=== PATIENT | female | born 1975 | race Caucasian/White ===

== ENCOUNTER 2017-05-29 15:49 | Emergency (ER) | payer OTHER ==
[~2017-05-29] VITALS: Ht 167.6 cm; Wt 52.2 kg
--- NOTE | ~2017-05-29 | CR63 ---
[facility] A Service of [facility] & [facility] RADIOLOGY TEXT RESULTS PATIENT: CORTEZ GREGORIO LOCATION: CFTX : 71 UNIT #: [id number] AGE: [address]: Charline Ferrari SEX: F ORDER DR: [id number] [facility] [address] [place], [place] [address] [id number] MR#: [id number] Acc #: [id number] NAME: CORTEZ GREGORIO : 1975 SEX: F STUDY DATE/TIME: 05/29/2017 16:49 UNIT: [facility] ROOM: STUDY DESCRIPTION: CR Chest 2 View Attending Physician: Charline Ferrari P.A.-C. Ordering Physician: Charline Ferrari P.A.-C. Primary Care Physician: Primary Care Physician No MEDICAL IMAGING REPORT This report is preliminary unless electronic signature is present EXAM Two-view chest 05/29/2017 INDICATION Cough, congestion, shortness of air, chest pain for a month, worsening symptoms lately. Tobacco abuse over 20 years. TECHNIQUE Two-view chest. No comparisons. FINDINGS There is mild upper thoracic levoscoliosis. Cardiac silhouette unremarkable. Vascularity normal. Lungs clear without evidence of pneumothorax. IMPRESSION Negative chest. We have no comparisons. Dictated by... José Zelaya M.D. THIS IS AN ELECTRONICALLY VERIFIED REPORT José Zelaya M.D. at 05/30/2017 11:25 PM LINETTE/shyanne TD: 05/30/2017 08:17 JOB #: [id number] MEDICAL IMAGING REPORT Page 1 of 1 COPY
--- NOTE | ~2017-05-29 | CT71 ---
[facility] A Service of [facility] RADIOLOGY TEXT RESULTS PATIENT: CORTEZ GREGORIO LOCATION: CFTX : 71 UNIT #: [id number] AGE: [address]: Charline Ferrari SEX: F ORDER DR: [id number] [facility] [address] [place], [place] [address] [id number] E MR#: [id number] Acc #: [id number] NAME: CORTEZ GREGORIO : 1975 SEX: F STUDY DATE/TIME: 05/29/2017 17:14 UNIT: [facility] ROOM: STUDY DESCRIPTION: CT Head Wo Contrast Attending Physician: Charline Ferrari P.A.-C. Ordering Physician: Charline Ferrari P.A.-C. Primary Care Physician: Primary Care Physician No MEDICAL IMAGING REPORT This report is preliminary unless electronic signature is present EXAM CT head without IV contrast COMPARISON None. INDICATION 42-year-old female with headache and dizziness as well as lightheaded sensation for [address] examination was performed with one or more of the following radiation dose reduction techniques: automatic exposure control, adjustment of mA and/or kV according to patient size, and iterative reconstruction. Cerumen in the left external ear canal. Mastoid air cells, middle ears and visualized paranasal sinuses are well-aerated. No acute fractures or suspicious osseous lesions. Normal cerebral volume. No mass effect or abnormal extraaxial fluid collection. No acute intracranial hemorrhage. No evidence of acute ischemia. IMPRESSION No acute intracranial abnormality. Exam is within normal limits. Dictated by... Rupesh Bell M.D. THIS IS AN ELECTRONICALLY VERIFIED REPORT Rupesh Bell M.D. at 06/02/2017 10:57 PM ISMA/shyanne [facility] A Service of [facility] & [facility] RADIOLOGY TEXT RESULTS PATIENT: CORTEZ GREGORIO LOCATION: [place] : 71 UNIT #: [id number] AGE: [address]: Charline Ferrari SEX: F ORDER DR: TD: 05/30/2017 08:09 JOB #: [id number] MEDICAL IMAGING REPORT Page 1 of 1 COPY
[~2017-05-29 15:49] MED LIST: ALBUTEROL17 GM INH; AURALGAN EAR DR14 ML OT; CIPRO PO; DARVOCET-N 1001 TAB; DEPAKOTE; ERYTHROMYCIN O3.5 G1 OD; FLONASE16 GM; IBUPROFEN PO; KLONOPIN; SUDAFED30 M1 PO; ULTRAM PO; ZITHROMAX PO
== END 2017-05-29 18:00 | disposition home or self-care (01) ==
LOC: CFTX 15:49 → CED 15:49 → CFTX 16:18
DX: R05 Cough (principal); R51 Headache; Z98.51 Tubal ligation status; F17.200 Nicotine dependence, unspecified, uncomplicated
CPT/HCPCS: 70450; 71020; 96361; 96372; 96374; 96375; 99284; J1100; J1200; J1885